=== PATIENT | female | born 1935 | race Hispanic/Latino ===

== ENCOUNTER 2018-10-16 15:17 | Outpatient (CLI) | payer MEDICARE ==
--- NOTE | 2018-10-17 02:06 | XRay Report ---
PROCEDURE: XR SPINE LUMBOSACRAL 4+V Technique: 5 views lumbar spine: AP, oblique and lateral projections. HISTORY: Lumbar back pain. COMPARISON: None available. FINDINGS: Mild convex left lumbar curvature. There is no spondylolysis. Subtle retrolisthesis of L2 relative to L3. Suggested decreased osseous mineralization. Vertebral body heights are maintained. Multilevel endplate and articular facet degenerative changes present. Moderate intervertebral disc he ight loss at L2-L3. Atherosclerotic vascular aortic changes. Mild sacroiliac degenerative changes. IMPRESSION: 1. No acute osseous abnormality. 2. Suggestive decreased osseous mineralization, consider correlation with DEXA for further quantifica tion. 3. Multilevel degenerative changes, findings most significant at L2-L3 involving the endplates and in tervertebral disc and at L4-L5 and L5-S1 involving the articular facet joints. This document is electronically signed by Guy Qureshi DO., Oct 17 2018 02:05:03 AM ET
== END 2018-10-16 15:18 | disposition home or self-care (01) ==
LOC: SPVIMAG 15:17
PROVIDERS: ATTEND Internal Medicine
DX: M47.816 Spondylosis without myelopathy or radiculopathy, lumbar region (principal); M51.37 Other intervertebral disc degeneration, lumbosacral region; I70.0 Atherosclerosis of aorta
CPT/HCPCS: 72110